=== PATIENT | male | born 1985 | race Caucasian/White ===

== ENCOUNTER → 2023-04-28 | Emergency (ER) | payer MEDICAID ==
[~2023-04-28] VITALS: Ht 185.4 cm; Wt 86.2 kg
[~2023-04-28] MED LIST: CETI-90 PO; CLIN300C12 PO; CLINDAMYCIN HCL 150 MG CAPSULE PO ONE; CLINDAMYCIN HCL 300 MG CAPSULE ONE; DIPH25TA25 PO; FAMO40TA7 PO; LORA10TA7 PO; PRED20TA PO; diphenhydrAMINE 50 MG CAPSULE ONE; diphenhydrAMINE 50 MG CAPSULE PO ONE; predniSONE 50 MG TABLET ONE; predniSONE 50 MG TABLET PO ONE
[2023-04-28 20:23] VITALS: O2SAT 96
== END | disposition home or self-care (01) ==
LOC: ER 20:31
DX: T78.3XXA Angioneurotic edema, initial encounter (principal); R21 Rash and other nonspecific skin eruption; F17.210 Nicotine dependence, cigarettes, uncomplicated
CPT/HCPCS: 99283; 99406; Q0163; J7512; A4663

== ENCOUNTER 2023-04-30 10:31 | Emergency (ER) | payer MEDICAID ==
[~2023-04-30] VITALS: Ht 182.9 cm; Wt 104.3 kg
[~2023-04-30 10:31] MED LIST changes: -CETI-90 PO; -CLINDAMYCIN HCL 150 MG CAPSULE PO ONE; -CLINDAMYCIN HCL 300 MG CAPSULE ONE; -FAMO40TA7 PO; -LORA10TA7 PO; -diphenhydrAMINE 50 MG CAPSULE ONE; -diphenhydrAMINE 50 MG CAPSULE PO ONE; -predniSONE 50 MG TABLET ONE; -predniSONE 50 MG TABLET PO ONE
[2023-04-30 11:30] LABS: BILIRUBIN,TOTAL 0.5 mg/dL (0.2-1.0); CREATININE 1.1 mg/dL (0.6-1.3); POTASSIUM 3.6 mmol/L (3.5-5.1)
[2023-04-30 11:31] LABS: ALBUMIN 3.6 g/dL (3.4-5.0); TOTAL PROTEIN, SERUM 6.7 g/dL (6.4-8.2)
[2023-04-30] MEDS ORDERED: PRED20TA PO (11:36)
[2023-04-30] MEDS ORDERED: FAMO40TA7 PO (11:36)
[2023-04-30] MEDS ORDERED: CETI-90 PO (11:36)
[2023-04-30] MEDS ORDERED: LORA10TA7 PO (11:36)
[2023-04-30 11:47] LABS: ERYTHROCYTE SEDIMENTATION RATE 2 MM/HR (0-15)
[2023-04-30 11:50] LABS: BASOPHILS # (AUTO) 0.1 K/UL (0.0-0.2); BASOPHILS % (AUTO) 0.6 % (0.0-2.0); EOSINOPHILS # (AUTO) 0.3 K/uL (0.0-0.7); EOSINOPHILS % (AUTO) 3.4 % (0.0-7.0); HEMATOCRIT 44.3 % (36.7-47.1); LYMPHOCYTES # (AUTO) 1.5 K/uL (0.8-4.8); LYMPHOCYTES % (AUTO) 14.5 % (20.5-51.5); MEAN CORPUSCULAR HEMOGLOBIN 30.4 uug (23.8-33.4); MEAN CORPUSCULAR HGB CONC 34 g/dL (32.5-36.3); MEAN CORPUSCULAR VOLUME 89.8 fL (73.0-96.2); MONOCYTES # (AUTO) 0.6 K/uL (0.1-1.30); MONOCYTES % (AUTO) 5.8 % (0.0-11.0); NEUTROPHILS # (AUTO) 7.6 K/uL (1.8-8.9); NEUTROPHILS % (AUTO) 75.7 % (38.5-71.5); PLATELET COUNT (AUTO) 206 K/uL (152-348); RED BLOOD CELL COUNT(AUTO) 4.93 MIL/uL (4.06-5.63); RED CELL DISTRIBUTION WIDTH 13.2 % (12.1-16.2); WHITE BLOOD COUNT (AUTO) 10.1 K/uL (3.6-10.2)
[2023-04-30 11:58] LABS: DIFFERENTIAL COMMENT 1
[2023-04-30] MEDS ORDERED: FAMOTIDINE 20 MG TABLET PO ONE (13:30)
[2023-04-30] MEDS ORDERED: predniSONE 50 MG TABLET PO ONE (13:30)
[2023-04-30] MEDS ORDERED: predniSONE 50 MG TABLET ONE (13:46)
[2023-04-30] MEDS ORDERED: FAMOTIDINE 20 MG TABLET ONE (13:47)
[2023-04-30 13:58] VITALS: BP 121/71; O2SAT 98
[2023-05-01 14:06] LABS: *ANTI-SCLERODERMA-70 AB <0.2 AI (0.0-0.9); *RNP ANTIBODIES <0.2 AI (0.0-0.9); *SJOGREN'S ANTI-SS-A <0.2 AI (0.0-0.9); *SJOGREN'S ANTI-SS-B <0.2 AI (0.0-0.9); *SMITH ANTIBODIES <0.2 AI (0.0-0.9); ANTI-DNA(DS) AB, QN <1 IU/mL (0-9); ANTI-NUCLEAR AB DIRECT Negative (Negative)
== END 2023-04-30 13:59 | disposition home or self-care (01) ==
LOC: ER 10:31
DX: T78.3XXA Angioneurotic edema, initial encounter (principal); F17.210 Nicotine dependence, cigarettes, uncomplicated
CPT/HCPCS: 99283; 80053; 85025; 85651; 36415; 86038; J7512; A4663